=== PATIENT | female | born 1975 | race African-American/Black ===

== ENCOUNTER 2018-04-29 07:53 | Day surgery (SDC) | payer OTHER ==
[2018-04-24 12:27] LABS: CLARITY,URINE CLEAR (Clear); COLOR,URINE YELLOW (Yellow); GLUCOSE, URINE NEGATIVE (Neg); KETONES,URINE NEGATIVE (Neg); LEUKOCYTE ESTERASE ,URINE NEGATIVE (Neg); NITRITES, URINE NEGATIVE (Neg); OCCULT BLOOD,URINE TRACE-INTACT (Neg); PH,URINE 6.5 (4.8-8.0); PROTEIN,URINE NEGATIVE (Neg); UROBILINOGEN,URINE 0.2 E.U/dL (0.2-1.0)
[2018-04-24 12:27] LABS: BASOPHILS # (AUTO) 0.1 X10'3 (0-0.2); BASOPHILS % (AUTO) 0.9 % (0-1); EOSINOPHILS # (AUTO) 0.1 X10'3 (0-0.9); EOSINOPHILS % (AUTO) 2.6 % (0-6); LYMPHOCYTES # (AUTO) 1.2 X10'3 (1.1-4.8); LYMPHOCYTES % (AUTO) 21.6 % (21-51); MEAN CORPUSCULAR HGB CONC 32.9 g/dL (33.0-36.5); MEAN PLATELET VOLUME 9.1 FL (7.4-10.4); MONOCYTES # (AUTO) 0.5 X10'3 (0-0.9); MONOCYTES % (AUTO) 8.7 % (2-12); NEUTROPHILS # (AUTO) 3.7 X10'3 (1.8-7.7); NEUTROPHILS % (AUTO) 66.2 % (42-75); PRE OP HEMATOCRIT 35.7 % (35.0-45.0); PRE OP HEMOGLOBIN 11.7 g/dL (12.0-16.0); PRE OP PLATELET COUNT 272 X10'3 (140-440)
[2018-04-24 12:36] LABS: UA COLLECTION TYPE CLN CATCH MIDSTREAM
[2018-04-24 12:38] LABS: BACTERIA,URINE FEW /HPF (Neg); RBC,URINE 0-2 /HPF (0-2); SQUAMOUS EPITHELIAL CELL,UR FEW /LPF (FEW); WBC,URINE NONE SEEN /HPF (0-4)
[2018-04-24 12:47] LABS: ALBUMIN 3.5 G/DL (3.4-5.0); ALBUMIN/GLOBULIN RATIO 0.8 (1.1-1.5); ALKALINE PHOSPHATASE 75 IU/L (46-116); BLOOD UREA NITROGEN 10 MG/DL (7-18); BUN/CREATININE RATIO 10.8 (6.6-38.0); CHLORIDE 105 MMOL/L (99-107); CREATININE 0.93 MG/DL (0.40-0.90); PRE OP ALT 17 U/L (30-65); PRE OP ANION GAP 10 (8-16); PRE OP AST 13 U/L (10-37); PRE OP BILIRUB, TOTAL 0.2 MG/DL (0.0-1.0); PRE OP GLUCOSE 91 MG/DL (70-104); PRE OP POTASSIUM 3.9 MMOL/L (3.4-5.1); PRE OP SODIUM 139 MMOL/L (135-145); TOTAL CARBON DIOXIDE 23.6 MMOL/L (24-32); TOTAL PROTEIN 7.8 G/DL (6.4-8.2); eGFR 80 ML/MIN
[2018-04-24 13:15] LABS: HCG SERUM QL NEGATIVE
[~2018-04-29] VITALS: Ht 157.5 cm; Wt 116.6 kg
[2018-04-29] VITALS (10 sets, daily range): BP systolic 100–140; BP diastolic 64–86
[~2018-04-29 07:53] MED LIST: LISI-604 PO; METF500T7 PO; cefotetan 2gm/isosm dext IVPB 50 ML IV ONE; famotidine 20mg tablet PO ONE; ringers solution, lacted 1,000 ML IV SCH
[2018-04-29] MEDS ORDERED: BUPIVAcaine/PF 2.5mg/ml (0.25%) 10ml vial ONE ×3 (09:30→09:42)
[2018-04-29] MEDS ORDERED: sevoflurane 250ml liquid IH ONE (10:10)
[2018-04-29] MEDS ORDERED: rocuronium 10mg/ml inj IV ONE ×2 (10:10→10:53)
[2018-04-29] MEDS ORDERED: fentaNYL/PF 50MCG/1 ML 2ML syringe ONE ×2 (10:16→10:22)
[2018-04-29] MEDS ORDERED: midazolam 2 mg/2 ml injection ONE (10:16)
[2018-04-29] MEDS ORDERED: clindamycin phosphate 40gm vag cream ONE (10:22)
[2018-04-29] MEDS ORDERED: vasoPRESSIN 20 units/ml inj. ONE (10:23)
[2018-04-29] MEDS ORDERED: ringers solution, lacted 1,000 ML IV SCH (10:51)
[2018-04-29] MEDS ORDERED: glycopyrrolate 0.2mg/ml inj ONE (10:53)
[2018-04-29] MEDS ORDERED: succinylcholine 20mg/ml inj IV ONE (10:53)
[2018-04-29] MEDS ORDERED: ondansetron/PF 4mg/2ml inj ONE (10:53)
[2018-04-29] MEDS ORDERED: neostigmine methylsulfate 1 MG/ML 10ml vial ONE (10:53)
[2018-04-29] MEDS ORDERED: LIDOcaine 2% (20mg/ml) 5ml vial ONE (10:53)
[2018-04-29] MEDS ORDERED: esmolol inj. 10 ML IV ONE (10:54)
[2018-04-29] MEDS ORDERED: metoprolol tartrate 1mg/ml inj IV ONE (10:54)
[2018-04-29] MEDS ORDERED: propofol inj 20 ML IV ONE (10:54)
[2018-04-29] MEDS ORDERED: proCHLORperazine 10 MG/2 ml inj IV PRN (10:55)
[2018-04-29] MEDS ORDERED: meperidine/PF 25mg/ml syringe IV PRN ×3 (10:55)
[2018-04-29] MEDS ORDERED: morphine 4 MG/ML inj SYRINge IV PRN ×2 (10:55)
[2018-04-29] MEDS ORDERED: ondansetron/PF 4mg/2ml inj IV PRN (10:55)
[2018-04-29] MEDS ORDERED: sugammadex 200mg/2ml injection IV ONE (11:02)
--- NOTE | 2018-04-29 11:18 | NUR ---
Received from OR via , accompanied by Anesthesiologist DR LAU and report given by Anesthesiolgist. AWAKENS TO VOICE. VITALS STABLE. DRESSING DI. STEPHEN PAIN. ABD SOFT.
--- NOTE | 2018-04-29 12:48 | NUR ---
AWAKE AND ORIENTED. VITALS STABLE. DRESSING DI. STATES ONLY MIN DISCOMFORT. HOME WITH A FRIEND AT THIS TIME.
== END 2018-04-29 12:48 | disposition home or self-care (01) ==
LOC: PAS 07:53
PROVIDERS: ATTEND Obstetrics & Gynecology Obstetrics
DX: Z30.2 Encounter for sterilization (principal); F41.9 Anxiety disorder, unspecified; F32.9 Major depressive disorder, single episode, unspecified; J45.909 Unspecified asthma, uncomplicated; Z88.6 Allergy status to analgesic agent; E11.9 Type 2 diabetes mellitus without complications; E66.9 Obesity, unspecified; Z79.899 Other long term (current) drug therapy; Z83.3 Family history of diabetes mellitus; Z91.010 Allergy to peanuts; Z91.013 Allergy to seafood; I10 Essential (primary) hypertension
CPT/HCPCS: 36415; 58670; 71046; 80053; 81001; 82948; 84703; 85025; 86885; 86900; 86901; 93005; C9399; J0330; J2001; J2175; J2250; J2405; J2704; J2710; J3010; J3490; J7120; A7000